=== PATIENT | female | born 1960 | race Hispanic/Latino ===

== ENCOUNTER 2025-01-23 18:10 | Emergency (ER) | payer OTHER, SELFPAY ==
[2025-01-23 18:12] VITALS: PULSE 65; RESP 16; TEMP 37.1; O2SAT 99; BMI 32.0
--- NOTE | 2025-01-23 18:19 | RAD_ITS ---
PROCEDURE: ANKLE MIN 3 VIEWS 01/23/2025 REASON FOR EXAM: FALL TECHNIQUE: ANKLE MIN 3 VIEWS COMPARISON: None FINDINGS: No displaced fracture or traumatic malalignment. The talar dome appears intact. Bone mineral density is subjectively normal. Soft tissues are unremarkable. Large plantar heel spur. RAD/Ankle min 3 Views IMPRESSION: No acute osseous abnormality of the right ankle. Reading Location: [facility]
--- NOTE | 2025-01-23 18:50 | RAD_ITS ---
PROCEDURE: WRIST MIN 3 VIEWS 01/23/2025 REASON FOR EXAM: FALL TECHNIQUE: WRIST MIN 3 VIEWS COMPARISON: None FINDINGS: No displaced fracture or traumatic malalignment. Bone mineral density is subjectively normal. There is no significant soft tissue swelling. Mild degenerative changes at the 1st carpometacarpal joint. RAD/Wrist min 3 Views IMPRESSION: No displaced fracture of the right wrist. Reading Location: [facility]
--- NOTE | 2025-01-23 19:38 | EX.ED.DYSGE1 ---
HPI <TIFFANI Garsia - Last Filed: 01/23/25 20:43> History of Present Illness Chief Complaint: Fall Narrative Narrative: Patient presenting today with her family due to a mechanical fall that occurred this afternoon. [place] when she tripped and twisted her right ankle, she tried to catch herself with her right wrist causing pain. She denies hitting her head or any LOC. She denies any other injury. She is [place]-speaking, her son is interpreting for her. PFSH <TIFFANI Garsia - Last Filed: 01/23/25 20:43> PFSH Allergy/AdvReac Type Severity Reaction Status Date / Time No Known Allergies Allergy Verified 01/23/25 18:12 Social History Smoking Status: Never smoker ROS <TIFFANI Garsia - Last Filed: 01/23/25 20:43> ROS ED Constitutional Constitutional ED: Denies chills or fever(s) Cardiovascular Cardiovascular: Denies chest pain Respiratory/Chest Respiratory/Chest: Denies dyspnea Gastrointestinal Gastrointestinal: Denies abdominal pain, nausea or vomiting Musculoskeletal Musculoskeletal: Reports arthralgias Integumentary Denies Abrasions Neurologic Neurologic: Denies paresthesias EXAM <TIFFANI Garsia - Last Filed: 01/23/25 20:43> Physical Exam Const Vital Signs: 01/23/25 18:12 01/23/25 20:04 Temperature 98.8 F Temperature Source Oral Pulse Rate 65 Respiratory Rate 16 Respiratory Effort Normal Pulse Ox 99 Oxygen Delivery Method Room Air Positive well nourished, well developed and no apparent distress General Appearance ED: well developed HEENT Reports normocephalic and head/scalp atraumatic Mouth ED: Yes moist mucous membranes normal Eyes PERRL and EOMs intact bilaterally Neck full ROM and supple Chest Wall inspection of chest normal Resp normal respiratory effort and clear to auscultation bilaterally Cardio regular rate and regular rhythm Back/Spine normal ROM and normal to inspection Extremity normal to inspection and full ROM Extremity Narrative: Full range of motion to the right ankle with no pain to palpation, no swelling to the ankle, no proximal fibular tenderness, small abrasion to the right knee with no tenderness to the knee, full range of motion to the knee, extensor mechanism intact. Full range of motion to the right wrist with out any pain, no tenderness to the right wrist. She does have tenderness between the right 3rd and 4th MCPs. Right radial pulse and right DP pulse 2+, good cap refill, sensation intact. Neuro oriented x3, CN's II-XII intact bilaterally, moves all extremities, no focal motor deficits and no sensory deficits noted Sensorium / Orientation: awake and alert Psych mental status grossly normal and thought process normal Skin no rashes or lesions noted and no wounds <Dr. Nancy Graham DO - Last Filed: 01/23/25 19:49> Physical Exam Const Vital Signs: 01/23/25 18:12 01/23/25 20:04 Temperature 98.8 F Temperature Source Oral Pulse Rate 65 Respiratory Rate 16 Respiratory Effort Normal Pulse Ox 99 Oxygen Delivery Method Room Air MDM <TIFFANI Garsia - Last Filed: 01/23/25 20:43> [facility] MDM Narrative Medical decision making narrative: Patient presenting today due to a mechanical fall that occurred this afternoon in the [employer] parking lot. She reported pain to her right wrist and ankle which were both x-rayed in triage, they are negative for fracture. She has no tenderness on my exam to her ankle or wrist. She has minimal tenderness between the right 3rd and 4th MCPs. No visualized fracture on x-ray. She took something for pain prior to arrival and is not wanting anything here. I will give her an right wrist splint and Aircast with crutches. RICE instructions discussed with her. She can take Tylenol and ibuprofen as needed for pain. Recommended she follow-up with her PCP and she will be discharged home in stable condition I have personally performed a face to face assessment of the patient and have reviewed the [facility] Note. I performed a substantive portion of the visit including all aspects of the following. My taylor findings include: History is [patient presents the emergency department after sustaining a fall on some uneven concrete. She did not hit her head or lose consciousness. She is not anticoagulated. She complains of pain in the right ankle and right wrist and hand. Patient also bumped her knee. She has history of hypertension no other medical problems. She is [place]-speaking but her son translates for her.] Exam is [HEENT-PERRLA, EOMI. Cranial nerves II through XII grossly intact. TMs clear. Mucous membranes moist. No adenopathy. Cardiovascular-regular rate and rhythm without murmur or ectopy Lungs-clear to auscultation, chest wall stable without crepitus or subcu emphysema Abdomen-normoactive bowel sounds, soft, nontender, no rebound or rigidity, no peritoneal signs. Extremities-intact ?4. Right upper extremity-patient has some mild diffuse tenderness about the right wrist. She has some tenderness to palpation over the dorsum of the right hand at the third MCP joint. No obvious deformity. Normal range of motion. Right ankle-mild diffuse tenderness over the medial and lateral malleolus. No significant soft tissue swelling or ecchymosis or bruising. There is no deformity. She is neurovascular intact distally. Right knee-patient has linear contusion/abrasion over the lateral aspect of the knee joint. No real bony tenderness on exam. She has normal range of motion. She is neurovascular intact.] Medical Decison Making [x-rays obtained of the right ankle as well as the right wrist showed no fractures. I am able to visualize the third MCP joint and do not appreciate any fractures. Patient will be given an air splint as well as crutches and a right wrist splint. Advised to use ibuprofen or Tylenol for discomfort. Refer to primary care physician on-call for no doc for follow-up within next 5 to 7 days.] Other additions or changes: [None] Radiography X-Ray: Read by ED Physician Diagnostic Testing: Clinical Impression(s) from Imaging Studies Ankle X-Ray 01/23/25 18:19 IMPRESSION: No acute osseous abnormality of the right ankle. Reading Location: [facility] Wrist X-Ray 01/23/25 18:50 IMPRESSION: No displaced fracture of the right wrist. Reading Location: [facility] <Dr. Nancy Graham, DO - Last Filed: 01/23/25 19:49> [facility] Narrative Medical decision making narrative: Patient presenting today due to a mechanical fall that occurred this afternoon in the [employer] parking lot. She reported pain to her right wrist and ankle which were both x-rayed in triage, they are negative for fracture. She has no tenderness on my exam to her ankle or wrist. She has minimal tenderness between the right 3rd and 4th MCPs. No visualized fracture on x-ray. She took something for pain prior to arrival and is not wanting anything here. I will give her an Hardy wrap for her hand and ankle. RICE instructions discussed with her. She can take Tylenol and ibuprofen as needed for pain. Recommended she follow-up with her PCP and she will be discharged home in stable condition I have personally performed a face to face assessment of the patient and have reviewed the [facility] Note. I performed a substantive portion of the visit including all aspects of the following. My taylor findings include: History is [patient presents the emergency department after sustaining a fall on some uneven concrete. She did not hit her head or lose consciousness. She is not anticoagulated. She complains of pain in the right ankle and right wrist and hand. Patient also bumped her knee. She has history of hypertension no other medical problems. She is [place]-speaking but her son translates for her.] Exam is [HEENT-PERRLA, EOMI. Cranial nerves II through XII grossly intact. TMs clear. Mucous membranes moist. No adenopathy. Cardiovascular-regular rate and rhythm without murmur or ectopy Lungs-clear to auscultation, chest wall stable without crepitus or subcu emphysema Abdomen-normoactive bowel sounds, soft, nontender, no rebound or rigidity, no peritoneal signs. Extremities-intact ?4. Right upper extremity-patient has some mild diffuse tenderness about the right wrist. She has some tenderness to palpation over the dorsum of the right hand at the third MCP joint. No obvious deformity. Normal range of motion. Right ankle-mild diffuse tenderness over the medial and lateral malleolus. No significant soft tissue swelling or ecchymosis or bruising. There is no deformity. She is neurovascular intact distally. Right knee-patient has linear contusion/abrasion over the lateral aspect of the knee joint. No real bony tenderness on exam. She has normal range of motion. She is neurovascular intact.] Medical Decison Making [x-rays obtained of the right ankle as well as the right wrist showed no fractures. I am able to visualize the third MCP joint and do not appreciate any fractures. Patient will be given an air splint as well as crutches and a right wrist splint. Advised to use ibuprofen or Tylenol for discomfort. Refer to primary care physician on-call for no doc for follow-up within next 5 to 7 days.] Other additions or changes: [None] Radiography Diagnostic Testing: Clinical Impression(s) from Imaging Studies Ankle X-Ray 01/23/25 18:19 IMPRESSION: No acute osseous abnormality of the right ankle. Reading Location: [facility] Wrist X-Ray 01/23/25 18:50 IMPRESSION: No displaced fracture of the right wrist. Reading Location: [facility] Three-view x-rays of the right wrist obtained interpreted by myself as no evidence of fracture or dislocation. Three-view x-rays of the right ankle obtained interpreted by myself as no evidence of fracture or dislocation. Discharge Plan Triage Chief Complaint: Fall ED Midlevel Provider: Dixie Crowe ED Provider: Nancy Graham Dx/Rx/DC Orders Clinical Impression: Sprain of ankle, right, Right wrist sprain, Fall Instructions: ED Wrist Sprain, ED Ankle Sprain (Adult) Primary Care Provider: Care Physician,No Primary Referrals: Suly Michelle MD [Med Staff - Structural Steel Engineer] - 5-7 Days Activity Restrictions/Additional Instructions: Follow-up with the PCP I referred you to, ice your wrist and ankle, you can take NSAIDs and Tylenol as needed for pain. Return for any other concerns. Print Language: [place] Disposition Disposition: Home, Self Care
[2025-01-23 20:44] VITALS: BP 160/70; PULSE 69; RESP 18; TEMP 36.7; O2SAT 97
== END 2025-01-23 20:45 | disposition home or self-care (01) ==
PROVIDERS: Emergency Provider Emergency Medicine; Visit Provider Emergency Medicine
DX: S93.401A Sprain of unspecified ligament of right ankle, initial encounter (principal); I10 Essential (primary) hypertension; S80.211A Abrasion, right knee, initial encounter; S63.501A Unspecified sprain of right wrist, initial encounter; W01.0XXA Fall on same level from slipping, tripping and stumbling without subsequent striking against object, initial encounter; Y92.481 Parking lot as the place of occurrence of the external cause
CPT/HCPCS: 73110; 73610; 99284